=== PATIENT | male | born 1930 | race Caucasian/White ===

== ENCOUNTER 2018-11-27 04:40 | Inpatient (IN) | payer MEDICARE, BC, OTHER ==
[~2018-11-27] VITALS: Ht 188 cm; Wt 82.1 kg
[2018-11-27] VITALS (15 sets, daily range): BP systolic 116–166; BP diastolic 52–87; Ht 188 cm; Wt 82.1 kg
[~2018-11-27 04:40] MED LIST: CLARITIN 10 MG10 MG PO; FLOMAX0.4 MG PO; GLIMEPIRIDE4 MG PO; JANUVIA50 MG PO; LOW DOSE ASPIRI81 M1 PO; NORVASC5 MG PO; PRAVACHOL20 MG PO; ULTRAM50 MG PO; XANAX0.25 MG PO; ZANAFLEX2 M1 PO
[2018-11-27] MEDS ORDERED: RENAGEL800 MG PO (04:56)
[2018-11-27] MEDS ORDERED: ALDACTONE25 MG PO (04:56)
[2018-11-27] MEDS ORDERED: NOVOLOG100 UNIT/1 SC (04:56)
[2018-11-27] MEDS ORDERED: TOPROL XL50 MG PO (04:57)
[2018-11-27] MEDS ORDERED: REMERON15 MG PO (04:57)
[2018-11-27] MEDS ORDERED: MELATONIN 3 MG1 TAB PO (04:58)
[2018-11-27] MEDS ORDERED: LEVEMIR IN100 UNITS/ SQ (04:59)
[2018-11-27] MEDS ORDERED: COLACE100 MG PO (05:01)
[2018-11-27] MEDS ORDERED: FUROSEMIDE20 MG PO (05:01)
[2018-11-27] MEDS ORDERED: PHOSLO667 MG PO (05:02)
[2018-11-27 06:12] LABS: BASOPHILS 0.3 % (0-2); EOSINOPHILS 1.1 % (0-7); HEMATOCRIT 28.9 % (42.0-54.0); HEMOGLOBIN 9.2 g/dL (13.5-17.5); IMMATURE GRANULOCYTES 0.2 % (0-5); LYMPHOCYTES 32.4 % (15-50); MCHC 31.8 g/dL (31.0-37.0); MCV 87.8 fL (80.0-100.0); MEAN PLATELET VOLUME 10.2 fL (7.4-10.4); MONOCYTES 10.1 % (2-11); NEUTROPHILS 55.9 % (40-80); PLATELET COUNT 175 10x3/uL (130-400); RBC 3.29 10x6/uL (4.20-6.10); RDW 14.8 % (11.5-14.5); WBC 6.2 10x3/uL (4.8-10.8)
[2018-11-27 06:18] LABS: APTT 34.4 SECONDS (22.8-39.4); INR 1.32 (0.85-1.17); PROTIME 15.8 SECONDS (11.6-15.0)
[2018-11-27 06:20] LABS: D-DIMER-QUANTITATIVE 1.78 ug/mLFEU (0.20-0.54)
[2018-11-27 06:43] LABS: ALBUMIN 2.9 g/dL (3.4-5.0); ALKALINE PHOSPHATASE 85 U/L (46-116); ALT (SGPT) 20 U/L (10-68); CARBON DIOXIDE 17.5 mmol/L (21.0-32.0); CHLORIDE - SERUM 102 mmol/L (98-107); CKMB 3.5 U/L (0.0-3.6); CREATINE KINASE 108 UL (21-232); CREATININE - SERUM 4.4 mg/dL (0.6-1.3); POTASSIUM - SERUM 4.1 mmol/L (3.5-5.1); PROTEIN - SERUM 7.5 g/dL (6.4-8.2); SODIUM 137 mmol/L (136-145); UREA NITROGEN 91 mg/dL (7-18); eGFR NON AFRICAN AMERICAN 13 mL/min (90-120)
[2018-11-27 06:45] LABS: CALC OSMOLALITY 299 mosm/kg (275-300)
[2018-11-27 06:50] LABS: CALCIUM 6.9 mg/dL (8.5-10.1); GLUCOSE 70 mg/dL (74-106)
[2018-11-27 06:59] LABS: PRO BNP 38945 pg/mL (0-450)
[2018-11-27] MEDS ORDERED: GUAIFENESI100 MG/5 M PO (09:31)
[2018-11-27] MEDS ORDERED: ANUSOL-HC25 MG RC (09:32)
[2018-11-27 13:23] LABS: CKMB 3.3 U/L (0.0-3.6); CREATINE KINASE 118 UL (21-232)
[2018-11-27 13:25] LABS: TROPONIN-I 1.188 ng/mL (0.000-0.060)
[2018-11-27 19:13] LABS: CKMB 3.9 U/L (0.0-3.6); CREATINE KINASE 134 UL (21-232)
[2018-11-27 19:15] LABS: TROPONIN-I 1.086 ng/mL (0.000-0.060)
[2018-11-28] VITALS (24 sets, daily range): BP systolic 103–170; BP diastolic 38–118
[2018-11-28 03:23] LABS: BASOPHILS 0.4 % (0-2); EOSINOPHILS 2.1 % (0-7); HEMATOCRIT 30.1 % (42.0-54.0); HEMOGLOBIN 9.7 g/dL (13.5-17.5); IMMATURE GRANULOCYTES 0.4 % (0-5); LYMPHOCYTES 33.6 % (15-50); MCH 28.5 pg (26.0-34.0); MCHC 32.2 g/dL (31.0-37.0); MCV 88.5 fL (80.0-100.0); MEAN PLATELET VOLUME 10.3 fL (7.4-10.4); MONOCYTES 14.9 % (2-11); NEUTROPHILS 48.6 % (40-80); PLATELET COUNT 171 10x3/uL (130-400); RDW 14.7 % (11.5-14.5); WBC 5.7 10x3/uL (4.8-10.8)
[2018-11-28 03:42] LABS: ALBUMIN 2.8 g/dL (3.4-5.0); ANION GAP 19.7 mmol/L (8-16); BILIRUBIN - TOTAL 0.47 mg/dL (0.2-1.3); CARBON DIOXIDE 20.2 mmol/L (21.0-32.0); CREATININE - SERUM 4.6 mg/dL (0.6-1.3); MAGNESIUM - SERUM 2.3 mg/dL (1.8-2.4); POTASSIUM - SERUM 3.9 mmol/L (3.5-5.1); PROTEIN - SERUM 7.2 g/dL (6.4-8.2)
[2018-11-28 03:44] LABS: CALCIUM 6.8 mg/dL (8.5-10.1)
--- NOTE | 2018-11-28 19:14 | MORECARE ---
CASE MANAGEMENT DISCHARGE SUMMARY PATIENT: REEMA CAPELLAN UNIT: [id number] ADM DATE: 11/27/18 AGE: 88 : 31 SEX: M ROOM/BED: D.2307 AUTHOR: PATSY CASTILLO PHYSICIAN: REFERRING PHYSICIAN: RINKU BRONSON MD DATE OF SERVICE: 11/28/18 Discharge Plan Patient Name: REEMA CAPELLAN [facility] [facility] 1930 Planned Disposition: Nursing Facility [facility] Anticipated Discharge Date: Discharge Date: Expected LOS: Initial Reviewer: [email or web address] Initial Review Date: 11/27/2018 Generated: 11/28/18 8:14 pm Patient Name: REEMA CPAELLAN Page [id number] at 1914 All edits/amendments must be made on the electronic document DICTATION DATE: 11/28/181913 ASIAN STUDIES PROGRAM CHAIR: MADAN 11/28/181913 RPT#: [id number] DC DATE: STATUS: ADM IN [facility] [address] [place] [address] END OF REPORT
--- NOTE | 2018-11-28 19:22 | MORECARE ---
CASE MANAGEMENT DISCHARGE SUMMARY PATIENT: REEMA CAPELLAN UNIT: [id number] ADM DATE: 11/27/18 AGE: 88 : 31 SEX: M ROOM/BED: D.2307 AUTHOR: PATSY CASTILLO PHYSICIAN: REFERRING PHYSICIAN: RINKU BRONSON MD DATE OF SERVICE: 11/28/18 Discharge Plan Patient Name: REEMA CAPELLAN Facility: [facility]:[place] : 1930 Planned Disposition: Nursing Facility [facility] Anticipated Discharge Date: Discharge Date: Expected LOS: Initial Reviewer: [email or web address] Initial Review Date: 11/27/2018 Generated: 11/28/18 8:22 pm Comments DCP- Discharge Planning Updated by [email or web address]: Airam Hirsch on 11/28/18 6:[address] CM met with patient at bedside patient states he lives in "[facility] fol[facility] home" and plans to return there. Patient any needs at this time. CM will continue to follow and assist as needed with discharge planning / needs. DCPIA - Discharge Planning Initial Assessment Updated by [email or web address]: Airam Hirsch on 11/28/18 7:17 pm * Is the patient Alert and Oriented? Yes * PCP JOHNNY * Pharmacy [facility] * Preadmission Environment Leather Tooler [employer] * [facility] [phone] * ADLs Partial Dependent * Partial ADLs (Assistance needed) Ambulation Bathing Dressing Eating Medication Management Toileting Transfers * List name and contact numbers for known caregivers / representatives who currently or will assist patient after discharge: [facility] [phone] H * Verbal permission to speak to the caregivers and representatives has been obtained from the patient. N/A * Community resources currently utilized None * Additional services required to return to the preadmission environment? No * Can the patient safely return to the preadmission environment? Yes * Has this patient been hospitalized within the prior 30 days at any hospital? No Last DP export: 11/28/18 6:14 pm Patient Name: REEMA CAPELLAN Page 54571 at 1922 All edits/amendments must be made on the electronic document DICTATION DATE: 11/28/181921 SENIOR INSTRUMENTATION ENGINEER: MADAN 11/28/181921 RPT#: [id number] DC DATE: STATUS: ADM IN [facility] [address] [place] [address] END OF REPORT
[2018-11-29] VITALS (17 sets, daily range): BP systolic 105–139; BP diastolic 55–94
[2018-11-29 02:45] LABS: BASOPHILS 0.2 % (0-2); EOSINOPHILS 2.2 % (0-7); HEMATOCRIT 32.7 % (42.0-54.0); HEMOGLOBIN 10.3 g/dL (13.5-17.5); IMMATURE GRANULOCYTES 0.1 % (0-5); LYMPHOCYTES 33.4 % (15-50); MCH 28.3 pg (26.0-34.0); MCHC 31.5 g/dL (31.0-37.0); MCV 89.8 fL (80.0-100.0); MEAN PLATELET VOLUME 9.8 fL (7.4-10.4); MONOCYTES 16.3 % (2-11); NEUTROPHILS 47.8 % (40-80); PLATELET COUNT 172 10x3/uL (130-400); RBC 3.64 10x6/uL (4.20-6.10); WBC 8.1 10x3/uL (4.8-10.8)
[2018-11-29 03:02] LABS: ALBUMIN 2.7 g/dL (3.4-5.0); ANION GAP 20.2 mmol/L (8-16); BILIRUBIN - TOTAL 0.4 mg/dL (0.2-1.3); CARBON DIOXIDE 21.5 mmol/L (21.0-32.0); CREATININE - SERUM 4.5 mg/dL (0.6-1.3); MAGNESIUM - SERUM 2.3 mg/dL (1.8-2.4); PHOSPHOROUS 5.4 mg/dL (2.5-4.9); POTASSIUM - SERUM 3.7 mmol/L (3.5-5.1); PROTEIN - SERUM 7.1 g/dL (6.4-8.2)
[2018-11-29 03:03] LABS: CALCIUM 6.6 mg/dL (8.5-10.1)
[2018-11-30] VITALS (7 sets, daily range): BP systolic 117–138; BP diastolic 52–71
[2018-11-30 05:23] LABS: BASOPHILS 0.3 % (0-2); EOSINOPHILS 2.5 % (0-7); HEMATOCRIT 30.9 % (42.0-54.0); HEMOGLOBIN 9.7 g/dL (13.5-17.5); IMMATURE GRANULOCYTES 0.1 % (0-5); MCH 28.2 pg (26.0-34.0); MCHC 31.4 g/dL (31.0-37.0); MCV 89.8 fL (80.0-100.0); MEAN PLATELET VOLUME 10.2 fL (7.4-10.4); MONOCYTES 11.3 % (2-11); NEUTROPHILS 50.8 % (40-80); PLATELET COUNT 204 10x3/uL (130-400); RBC 3.44 10x6/uL (4.20-6.10); RDW 15.4 % (11.5-14.5); WBC 6.9 10x3/uL (4.8-10.8)
[2018-11-30 05:39] LABS: ALBUMIN 2.6 g/dL (3.4-5.0); ANION GAP 19.3 mmol/L (8-16); BILIRUBIN - TOTAL 0.38 mg/dL (0.2-1.3); CARBON DIOXIDE 24.1 mmol/L (21.0-32.0); CREATININE - SERUM 4.2 mg/dL (0.6-1.3); POTASSIUM - SERUM 3.4 mmol/L (3.5-5.1)
[2018-11-30 05:41] LABS: CALCIUM 6.7 mg/dL (8.5-10.1)
[2018-12-01] VITALS: BP 129/53
[2018-12-01 04:00] VITALS: BP 95/63
[2018-12-01 05:18] LABS: BASOPHILS 0.2 % (0-2); EOSINOPHILS 3.5 % (0-7); HEMATOCRIT 30.1 % (42.0-54.0); HEMOGLOBIN 9.5 g/dL (13.5-17.5); LYMPHOCYTES 33.3 % (15-50); MCH 28.3 pg (26.0-34.0); MCHC 31.6 g/dL (31.0-37.0); MCV 89.6 fL (80.0-100.0); MONOCYTES 12.3 % (2-11); NEUTROPHILS 50.7 % (40-80); PLATELET COUNT 183 10x3/uL (130-400); RBC 3.36 10x6/uL (4.20-6.10); RDW 15.2 % (11.5-14.5); WBC 5.9 10x3/uL (4.8-10.8)
[2018-12-01 06:00] LABS: ALBUMIN 2.5 g/dL (3.4-5.0); ANION GAP 16.9 mmol/L (8-16); BILIRUBIN - TOTAL 0.44 mg/dL (0.2-1.3); CARBON DIOXIDE 24.3 mmol/L (21.0-32.0); CREATININE - SERUM 3.8 mg/dL (0.6-1.3); MAGNESIUM - SERUM 1.9 mg/dL (1.8-2.4); POTASSIUM - SERUM 3.2 mmol/L (3.5-5.1); PROTEIN - SERUM 6.7 g/dL (6.4-8.2)
[2018-12-01 06:23] LABS: CALCIUM 6.5 mg/dL (8.5-10.1)
[2018-12-01 07:42] VITALS: BP 117/60
--- NOTE | 2018-12-01 10:14 | MORECARE ---
CASE MANAGEMENT DISCHARGE SUMMARY PATIENT: REEMA CAPELLAN UNIT: [id number] ADM DATE: 11/27/18 AGE: 88 : 31 SEX: M ROOM/BED: D.7291 AUTHOR: ANNA,DOC PHYSICIAN: REFERRING PHYSICIAN: RINKU BRONSON MD DATE OF SERVICE: 12/01/18 Discharge Plan Patient Name: REEMA CAPELLAN [facility] [facility] 1930 Planned Disposition: Nursing Facility [facility] Anticipated Discharge Date: Discharge Date: Expected LOS: Initial Reviewer: [email or web address] Initial Review Date: 11/27/2018 Generated: 12/01/18 11:13 am Comments DCP- Discharge Planning Updated by [email or web address]: Airam Hirsch on 11/28/18 6:[address] CM met with patient at bedside patient states he lives in "[facility] home" and plans to return there. Patient any needs at this time. CM will continue to follow and assist as needed with discharge planning / needs. DCPIA - Discharge Planning Initial Assessment Updated by [email or web address]: Airam Hirsch on 11/28/18 7:17 pm * Is the patient Alert and Oriented? Yes * PCP JOHNNY * Pharmacy [facility] * Preadmission Environment Fire Marshal [facility] * Facility Name [facility] [phone] * ADLs Partial Dependent * Partial ADLs (Assistance needed) Ambulation Bathing Dressing Eating Medication Management Toileting Transfers * List name and contact numbers for known caregivers / representatives who currently or will assist patient after discharge: PAUL WILKINS - [facility]- [phone] H * Verbal permission to speak to the caregivers and representatives has been obtained from the patient. N/A * Community resources currently utilized None * Additional services required to return to the preadmission environment? No * Can the patient safely return to the preadmission environment? Yes * Has this patient been hospitalized within the prior 30 days at any hospital? No External Providers External Provider: [facility] Next Contact Date: 12/01/2018 Service Request Date: Service Type: Resolution: Reviewer: Comments: Last DP export: 11/28/18 6:22 pm Patient Name: REEMA CAPELLAN Page 97003 at 1014 All edits/amendments must be made on the electronic document DICTATION DATE: 12/01/18 1013 AUTOMATIC SPREADER OPERATOR: MADAN 12/01/18 1013 RPT#: [id number] DC DATE: STATUS: ADM IN [facility] [address] [place] [address] END OF REPORT
--- NOTE | 2018-12-01 10:37 | MORECARE ---
CASE MANAGEMENT DISCHARGE SUMMARY PATIENT: REEMA CAPELLAN UNIT: [id number] ADM DATE: 11/27/18 AGE: 88 : 31 SEX: M ROOM/BED: D.2121 AUTHOR: ANNA,DOC PHYSICIAN: REFERRING PHYSICIAN: RINKU BRONSON MD DATE OF SERVICE: 12/01/18 Discharge Plan Patient Name: REEMA CAPELLAN Facility: [facility]:[place] : 1930 Planned Disposition: Nursing Facility [facility] Cert Anticipated Discharge Date: Discharge Date: Expected LOS: Initial Reviewer: [email or web address] Initial Review Date: 11/27/2018 Generated: 12/01/18 11:37 am Comments DCP- Discharge Planning Updated by [email or web address]: Rigoberto Flores on 12/01/18 9:[address] Patient Name: REEMA CAPELLAN Encounter No: [id number] : 1930 Primary Insurance: MEDICARE A & B Anticipated DC Date: Planned Disposition: Nursing Facility [facility] Cert External Planned Provider: [facility] LONG TERM CARE MEDICAID BED DCP follow-up note: CM FAXED UPDATE TO [facility], . FOR DISCHARGE, FAX DISCHARGE INFORMATION TO [facility] AT [phone]. NURSE REPORT TO BE CALLED TO [facility] AT [phone]. [facility] TO ARRANGE VAN TRANSPORTATION. Rigoberto Flores CASE MANAGEMENT DCP- Discharge Planning Updated by [id number]: Airam Hirsch on 11/28/18 6:[address] CM met with patient at bedside patient states he lives in "old folks home" and plans to return there. Patient any needs at this time. CM will continue to follow and assist as needed with discharge planning / needs. DCPIA - Discharge Planning Initial Assessment Updated by [email or web address]: Airam Hirsch on 11/28/18 7:17 pm * Is the patient Alert and Oriented? Yes * PCP JOHNNY * Pharmacy [facility] * Preadmission Environment Manager [facility] * Facility Name [facility] [phone] * ADLs Partial Dependent * Partial ADLs (Assistance needed) Ambulation Bathing Dressing Eating Medication Management Toileting Transfers * List name and contact numbers for known caregivers / representatives who currently or will assist patient after discharge: PAUL WILKINS - [place]- [phone] C [phone] H * Verbal permission to speak to the caregivers and representatives has been obtained from the patient. N/A * Community resources currently utilized None * Additional services required to return to the preadmission environment? No * Can the patient safely return to the preadmission environment? Yes * Has this patient been hospitalized within the prior 30 days at any hospital? No Last DP export: 12/01/18 9:14 a Patient Name: REEMA CAPELLAN Page 33088 at 1037 All edits/amendments must be made on the electronic document DICTATION DATE: 12/01/[address] CLEANING EQUIPMENT OPERATOR: MADAN 12/01/18 1037 RPT#: [id number] DC DATE: STATUS: ADM IN [facility] [address] [place] [address] END OF REPORT
[2018-12-01 11:48] VITALS: BP 127/108
[2018-12-01] MEDS ORDERED: ZITHROMAX250 MG PO (12:18)
[2018-12-01] MEDS ORDERED: ALBUTEROL SULF8.5 GM INH (12:19)
--- NOTE | 2018-12-01 14:23 | MORECARE ---
CASE MANAGEMENT DISCHARGE SUMMARY PATIENT: REEMA CAPELLAN UNIT: [id number] ADM DATE: 11/27/18 AGE: 88 : 31 SEX: M ROOM/BED: D.2128 AUTHOR: ANNA,DOC PHYSICIAN: REFERRING PHYSICIAN: RINKU BRONSON MD DATE OF SERVICE: 12/01/18 Discharge Plan Patient Name: REEMA CAPELLAN Facility: [facility]:[place] : 1930 Planned Disposition: Nursing Facility [facility]ATE Cert Anticipated Discharge Date: 12/01/18 Discharge Date: Expected LOS: 4 Initial Reviewer: [id number] Initial Review Date: 11/27/2018 Generated: 12/01/18 3:23 pm Comments DCP- Discharge Planning Updated by [email or web address]: Rigoberto Flores on 12/01/18 9:[address] Patient Name: REEMA CAPELLAN Encounter No: [id number] : 1930 Primary Insurance: MEDICARE A & B Anticipated DC Date: Planned Disposition: Nursing Facility [facility] Cert External Planned Provider: [facility] ALL[facility], LONG TERM CARE MEDICAID BED DCP follow-up note: CM FAXED UPDATE TO RAYSA OF [facility], . FOR DISCHARGE, FAX DISCHARGE INFORMATION TO [facility] AT [phone]. NURSE REPORT TO BE CALLED TO [facility] AT [phone]. [facility] TO ARRANGE VAN TRANSPORTATION. Rigoberto Flores CASE MANAGEMENT DCP- Discharge Planning Updated by [id number]: Airam Hirsch on 11/28/18 6:[address] CM met with patient at bedside patient states he lives in "old folks home" and plans to return there. Patient any needs at this time. CM will continue to follow and assist as needed with discharge planning / needs. DCPIA - Discharge Planning Initial Assessment Updated by [email or web address]: Airam Hirsch on 11/28/18 7:17 pm * Is the patient Alert and Oriented? Yes * PCP JOHNNY * Pharmacy [facility] * Preadmission Environment Floriculturist Long-Term * Facility Name [facility] [phone] * ADLs Partial Dependent * Partial ADLs (Assistance needed) Ambulation Bathing Dressing Eating Medication Management Toileting Transfers * List name and contact numbers for known caregivers / representatives who currently or will assist patient after discharge: PAUL WILKINS - [place]- [phone] H * Verbal permission to speak to the caregivers and representatives has been obtained from the patient. N/A * Community resources currently utilized None * Additional services required to return to the preadmission environment? No * Can the patient safely return to the preadmission environment? Yes * Has this patient been hospitalized within the prior 30 days at any hospital? No Coverage Notice Reviewer: [id number] Anna Flores Notice Issued Date-Time: 12/01/2018 13:20 Notice Type: IM Discharge Notice Notice Delivered To: Patient Relationship to Patient: Tool And Equipment Rental Clerk Name: Delivery Method: HAND - Hand Delivered Misti Days: Prior Verbal Notification: Recipient Understood Notice: Yes Recipient Signature: Med Rec Note Co-signed by Attending: Coverage Notice Comment: Last DP export: 12/01/18 9:37 a Patient Name: REEMA CAPELLAN Page 12890 at 1423 All edits/amendments must be made on the electronic document DICTATION DATE: 12/01/18 142 BUTTER GRADER: MADAN 12/01/181421 RPT#: [id number] DC DATE: STATUS: ADM IN [facility] [address] [place] [address] END OF REPORT
--- NOTE | 2018-12-01 14:37 | MORECARE ---
CASE MANAGEMENT DISCHARGE SUMMARY PATIENT: REEMA CAPELLAN UNIT: [id number] ADM DATE: 11/27/18 AGE: 88 : 31 SEX: M ROOM/BED: D.2128 AUTHOR: ANNA,DOC PHYSICIAN: REFERRING PHYSICIAN: RINKU BRONSON MD DATE OF SERVICE: 12/01/18 Discharge Plan Patient Name: REEMA CAPELLAN Facility: [facility]:[place] : 1930 Planned Disposition: Nursing Facility [facility] Cert Anticipated Discharge Date: 12/01/18 Discharge Date: Expected LOS: 4 Initial Reviewer: [email or web address] Initial Review Date: 11/27/2018 Generated: 12/01/18 3:37 pm Comments DCP- Discharge Planning Updated by [email or web address]: Rigoberto Flores on 12/01/18 9:[address] Patient Name: REEMA CAPELLAN Encounter No: [id number] : 1930 Primary Insurance: MEDICARE A & B Anticipated DC Date: Planned Disposition: Nursing Facility [facility] Cert External Planned Provider: [facility], LONG TERM CARE MEDICAID BED DCP follow-up note: CM FAXED UPDATE TO RAYSA OF [facility], . FOR DISCHARGE, FAX DISCHARGE INFORMATION TO [facility] AT [phone]. NURSE REPORT TO BE CALLED TO [facility] AT [phone]. [facility] TO ARRANGE VAN TRANSPORTATION. Rigoberto Flores CASE MANAGEMENT DCP- Discharge Planning Updated by [id number]: Airam Hirsch on 11/28/18 6:[address] CM met with patient at bedside patient states he lives in "old folks home" and plans to return there. Patient any needs at this time. CM will continue to follow and assist as needed with discharge planning / needs. DCPIA - Discharge Planning Initial Assessment Updated by [email or web address]: Airam Hirsch on 11/28/18 7:17 pm * Is the patient Alert and Oriented? Yes * PCP JOHNNY * Pharmacy [facility] * Preadmission Environment Desk Assistant [facility] * Facility Name [facility] [phone] * ADLs Partial Dependent * Partial ADLs (Assistance needed) Ambulation Bathing Dressing Eating Medication Management Toileting Transfers * List name and contact numbers for known caregivers / representatives who currently or will assist patient after discharge: PAUL WILKINS - [place]- [phone] H * Verbal permission to speak to the caregivers and representatives has been obtained from the patient. N/A * Community resources currently utilized None * Additional services required to return to the preadmission environment? No * Can the patient safely return to the preadmission environment? Yes * Has this patient been hospitalized within the prior 30 days at any hospital? No Coverage Notice Reviewer: [email or web address] Anna Flores Notice Issued Date-Time: 12/01/2018 13:20 Notice Type: IM Discharge Notice Notice Delivered To: Patient Relationship to Patient: Song Writer Name: Delivery Method: HAND - Hand Delivered Misti Days: Prior Verbal Notification: Recipient Understood Notice: Yes Recipient Signature: Med Rec Note Co-signed by Attending: Coverage Notice Comment: Last DP export: 12/01/18 1:23 p Patient Name: REEMA CAPELLAN Page 47814 at 1437 All edits/amendments must be made on the electronic document DICTATION DATE: 12/01/18 1437 MICROBIOLOGY LAB MANAGER: MADAN 12/01/18 1437 RPT#: [id number] DC DATE: STATUS: ADM IN [facility] [address] [place] [address] END OF REPORT
--- NOTE | 2018-12-01 14:45 | MORECARE ---
CASE MANAGEMENT DISCHARGE SUMMARY PATIENT: REEMA CAPELLAN UNIT: [id number] ADM DATE: 11/27/18 AGE: 88 : 31 SEX: M ROOM/BED: D.2121 AUTHOR: ANNA,DOC PHYSICIAN: REFERRING PHYSICIAN: RINKU BRONSON MD DATE OF SERVICE: 12/01/18 Discharge Plan Patient Name: REEMA ACPELLAN Facility: [facility]:[place] : 1930 Planned Disposition: Nursing Facility [facility] Cert Anticipated Discharge Date: 12/01/18 Discharge Date: Expected LOS: 4 Initial Reviewer: [id number] Initial Review Date: 11/27/2018 Generated: 12/01/18 3:44 pm Comments DCP- Discharge Planning Updated by [id number]: Rigoberto Flores on 12/01/18 1:[address] Patient Name: REEMA CAPELLAN Encounter No: [id number] : 1930 Primary Insurance: MEDICARE A & B Anticipated DC Date: 12-01-2018 Planned Disposition: Nursing Facility [facility] Cert External Planned Provider: [facility] MEDICARE REHAB BED DCP follow-up note: CM RECEIVED DISCHARGE ORDER, MET WITH PT IN ROOM WHO IS IN AGREEMENT WITH DISCHARGE BACK TO THE "REST HOME." IMPORTANT MESSAGE FROM MEDICARE PROVIDED AND EXPLAINED. PT ASKED CM TO CALL HIS DAUGHTER AND TELL HER. CM CALLED PAUL WILKINS - DAUGHTER- [phone], WHO IS IN AGREEMENT WITH DISCHARGE AND INFORMED CM THAT IF THE CARE HOME CANNOT [facility] PT, SHE WOULD COME AND GET HIM. CM SPOKE TO RAYSA OF [place], THEY WILL SEND VAN AND PT WILL RETURN TO SKILLED MEDICARE BED. CM FAXED DISCHARGE INFORMATION TO [facility] AT [phone]. NURSE REPORT TO BE CALLED TO [facility], . [facility] SENDING VAN TO [facility] AT ABOUT 3:00PM TODAY. Rigoberto Flores CASE MANAGEMENT DCP- Discharge Planning Updated by [email or web address]: Rigoberto Flores on 12/01/18 9:[address] Patient Name: REEMA CAPELLAN Encounter No: [id number] : 1930 Primary Insurance: MEDICARE A & B Anticipated DC Date: Planned Disposition: Nursing Facility [facility] Cert External Planned Provider: [facility] LONG TERM CARE MEDICAID BED DCP follow-up note: CM FAXED UPDATE TO RAYSA OF [facility], . FOR DISCHARGE, FAX DISCHARGE INFORMATION TO [facility] AT [phone]. NURSE REPORT TO BE CALLED TO [facility] AT [phone]. [facility] TO ARRANGE VAN TRANSPORTATION. Rigoberto Flores, CASE MANAGEMENT DCP- Discharge Planning Updated by [email or web address]: Airam Hirsch on 11/28/18 6:[address] CM met with patient at bedside patient states he lives in "old folks home" and plans to return there. Patient any needs at this time. CM will continue to follow and assist as needed with discharge planning / needs. DCPIA - Discharge Planning Initial Assessment Updated by [email or web address]: Airam Hirsch on 11/28/18 7:17 pm * Is the patient Alert and Oriented? Yes * PCP JOHNNY * Pharmacy [facility] * Preadmission Environment Bicycle Technician Residential * Facility Name [facility] [phone] * ADLs Partial Dependent * Partial ADLs (Assistance needed) Ambulation Bathing Dressing Eating Medication Management Toileting Transfers * List name and contact numbers for known caregivers / representatives who currently or will assist patient after discharge: PAUL BARRERA- [phone] H * Verbal permission to speak to the caregivers and representatives has been obtained from the patient. N/A * Community resources currently utilized None * Additional services required to return to the preadmission environment? No * Can the patient safely return to the preadmission environment? Yes * Has this patient been hospitalized within the prior 30 days at any hospital? No Coverage Notice Reviewer: [id number] - Rigoberto Flores Notice Issued Date-Time: 12/01/2018 13:20 Notice Type: IM Discharge Notice Notice Delivered To: Patient Relationship to Patient: Holder Pile Driving Name: Delivery Method: HAND - Hand Delivered Misti Days: Prior Verbal Notification: Recipient Understood Notice: Yes Recipient Signature: Med Rec Note Co-signed by Attending: Coverage Notice Comment: Last DP export: 12/01/18 1:37 p Patient Name: REEMA CAPELLAN Page 02420 at 1445 All edits/amendments must be made on the electronic document DICTATION DATE: 12/01/181443 CHART CHANGER: MADAN 12/01/181443 RPT#: [id number] DC DATE: STATUS: ADM IN [facility] [address] [place] [address] END OF REPORT
[2018-12-02 06:14] LABS: VITAMIN D 25 HYDROXY 18.2 ng/mL (30.0-100.0)
[2018-12-06 20:06] LABS: AEROBE ID Final report (())
== END 2018-12-01 15:49 | DRG 291 ==
LOC: D.ER 04:40 → D.M2 05:23 → D.EDHOLD 05:23 → D.M2 08:18 → D.ICU 14:19 → D.M2 11-29 16:21
PROVIDERS: Family Medicine; Internal Medicine Nephrology; ADMIT Family Medicine
DX: I13.2 Hypertensive heart and chronic kidney disease with heart failure and with stage 5 chronic kidney disease, or end stage renal disease (principal); J18.1 Lobar pneumonia, unspecified organism; I50.23 Acute on chronic systolic (congestive) heart failure; J96.01 Acute respiratory failure with hypoxia; N18.5 Chronic kidney disease, stage 5; I48.92 Unspecified atrial flutter; J98.11 Atelectasis; I42.9 Cardiomyopathy, unspecified; I25.10 Atherosclerotic heart disease of native coronary artery without angina pectoris; E11.22 Type 2 diabetes mellitus with diabetic chronic kidney disease; N25.0 Renal osteodystrophy; E83.51 Hypocalcemia; D63.1 Anemia in chronic kidney disease; I48.91 Unspecified atrial fibrillation; E87.6 Hypokalemia; I08.3 Combined rheumatic disorders of mitral, aortic and tricuspid valves